=== PATIENT | male | born 1985 | race Caucasian/White ===

== ENCOUNTER → 2022-01-20 | Outpatient (CLI) | payer OTHER ==
--- NOTE | 2022-01-20 11:44 | KCIC ---
XR LUMBAR SPINE 4+V History: Reason: Acute Rt. sided LBP w/Rt. sciatica. / Spl. Instructions: Lifting injury almost 1 wee k ago. / History: Technique: 5 views lumbar spine. Comparison: None. Findings: Normal vertebral body height and alignment. No acute fracture. Mild degenerative disc changes most pr ominent L5-S1. Mild facet arthropathy. Impression: 1. Mild lumbar spondylosis most prominent L5-S1. Electronically signed by: Hakan Song DO (01/20/2022 11:42 AM) [id number]
== END ==
LOC: KCIC 09:02
PROVIDERS: ATTEND Physician Assistant Medical
DX: M47.817 Spondylosis without myelopathy or radiculopathy, lumbosacral region (principal); M48.8X7 Other specified spondylopathies, lumbosacral region
CPT/HCPCS: 72110